=== PATIENT | male | born 1990 | race Caucasian/White ===

== ENCOUNTER 2021-04-26 08:17 | Emergency (ER) | payer MEDICAID ==
[~2021-04-26] VITALS: Ht 177.8 cm; Wt 81.7 kg
[2021-04-26] MEDS ORDERED: IBUPROFEN200 MG PO (08:29)
[2021-04-26] MEDS ORDERED: HYDROCODON-ACE1 EA11 PO (08:48)
[2021-04-26] MEDS ORDERED: AMOXICILLIN500 MG PO (08:48)
== END 2021-04-26 08:57 | disposition home or self-care (01) ==
LOC: ED 08:17
DX: H66.92 Otitis media, unspecified, left ear (principal); H69.80 Other specified disorders of Eustachian tube, unspecified ear
CPT/HCPCS: 99282